=== PATIENT | female | born 1930 | race Caucasian/White ===

== ENCOUNTER → 2017-01-04 | Outpatient (CLI) | payer MEDICARE ==
[2017-01-04 10:50] LABS: MEAN CORPUSCULAR HEMOGLOBIN 27.9 PG (26.0-34.0); MEAN CORPUSCULAR HGB CONC 32.9 g/dL (31.0-37.0); MEAN CORPUSCULAR VOLUME 85 FL (80-100); MEAN PLATELET VOLUME 11.2 FL (6.0-9.5); PLATELET COUNT 190 10^3uL (150-450); WHITE BLOOD COUNT 5.76 10^3uL (4.0-11.0)
[2017-01-04 11:13] LABS: ANION GAP 17.7 MEQ/L (3-15)
[2017-01-04 11:14] LABS: BASOPHILS % (AUTO) 0 % (0-2); EOSINOPHILS # (AUTO) 0.1 10^3uL; EOSINOPHILS % (AUTO) 3 % (0-4); LYMPHOCYTES # (AUTO) 1.2 X10^3; MONOCYTES # (AUTO) 0.8 X10^3; MONOCYTES % (AUTO) 14 % (3-11); NEUTROPHILS # (AUTO) 3.5 X10^3; NEUTROPHILS % (AUTO) 62 % (51-67)
== END ==
LOC: RAD 10:30
PROVIDERS: ATTEND Internal Medicine
DX: I50.42 Chronic combined systolic (congestive) and diastolic (congestive) heart failure (principal)
CPT/HCPCS: 36415; 71020; 80048; 83880; 84450; 85025; 86140

== ENCOUNTER → 2017-02-02 | Outpatient (REF) | payer MEDICARE | LOC: LAB 08:39 | PROVIDERS: ATTEND Internal Medicine | DX: I50.22 Chronic systolic (congestive) heart failure (principal); I25.10 Atherosclerotic heart disease of native coronary artery without angina pectoris | CPT/HCPCS: 83880; 86140 ==